=== PATIENT | female | born 1995 | race Caucasian/White ===

== ENCOUNTER 2023-01-28 05:47 | Emergency (ER) | payer MEDICAID ==
[~2023-01-28] VITALS: Ht 165.1 cm; Wt 50.0 kg
[2023-01-28 07:44] LABS: BASOPHILS % (AUTO) 0.4 % (0-1); EOSINOPHILS % (AUTO) 0.2 % (0-6); HEMATOCRIT 37.7 % (35.0-45.0); HEMOGLOBIN 12.8 g/dl (12.0-16.0); LYMPHOCYTES # (AUTO) 1.6 X10'3 (1.1-4.8); LYMPHOCYTES % (AUTO) 18.3 % (21-51); MEAN CORPUSCULAR HEMOGLOBIN 30.1 PG (27.0-31.0); MEAN CORPUSCULAR HGB CONC 34.1 g/dL (33.0-36.5); MEAN CORPUSCULAR VOLUME 88.3 FL (78-98); MEAN PLATELET VOLUME 7.7 FL (7.4-10.4); MONOCYTES # (AUTO) 0.6 X10'3 (0-0.9); MONOCYTES % (AUTO) 7.4 % (2-12); NEUTROPHILS # (AUTO) 6.5 X10'3 (1.8-7.7); NEUTROPHILS % (AUTO) 73.7 % (42-75); PLATELET COUNT 309 X10'3 (140-440); RED BLOOD COUNT 4.27 X10'6 (4.20-5.60); RED CELL DISTRIBUTION WIDTH 13.6 % (11.5-14.5); WHITE BLOOD COUNT 8.8 X10'3 (4.5-11.0)
[2023-01-28 08:11] LABS: ALANINE AMINOTRANSFERASE 28 U/L (12-78); ALBUMIN 4.4 G/DL (3.4-5.0); ALBUMIN/GLOBULIN RATIO 1.2 (1.1-1.5); ALKALINE PHOSPHATASE 54 IU/L (46-116); ANION GAP 20 (8-16); ASPARTATE AMINO TRANSFERASE 25 U/L (10-37); BILIRUBIN,TOTAL 2.6 MG/DL (0.1-1.0); BLOOD UREA NITROGEN 20 MG/DL (7-18); BUN/CREATININE RATIO 28.2 (10.0-20.0); CALCIUM 9.4 MG/DL (8.5-10.1); CHLORIDE 96 MMOL/L (99-107); CREATININE 0.71 MG/DL (0.40-0.90); GLUCOSE 75 MG/DL (70-104); POTASSIUM 3.3 MMOL/L (3.5-5.1); SODIUM 133 MMOL/L (135-145); TOTAL CARBON DIOXIDE 16.8 MMOL/L (24-32); TOTAL PROTEIN 8.1 G/DL (6.4-8.2); eCRCL 93 ML/MIN; eGFR > 90 ML/MIN
[2023-01-28 08:12] LABS: ETHANOL < 10 MG/DL (<10)
[2023-01-28 08:25] LABS: ACETAMINOPHEN < 2.0 UG/ML (10-30)
[2023-01-28 09:19] LABS: CREATINE KINASE 249 U/L (26-192)
--- NOTE | 2023-01-28 11:30 | NUR ---
pt exited room at 1115 to use bathroom pt has not come back to room all bathrooms in unit check pt is not visable on unit pt found walking back into unit from outside.
[2023-01-28 12:25] LABS: URINE HCG NEGATIVE (NEG)
--- NOTE | 2023-01-28 12:30 | NUR ---
urine collected sent to lab
[2023-01-28 12:33] LABS: URINE AMPHETAMINE SCREEN NEGATIVE (Neg); URINE BARBITUATE SCREEN NEGATIVE (Neg); URINE BENZODIAZEPINES SCREEN NEGATIVE (Neg); URINE CANNABINOID SCREEN POSITIVE (Neg); URINE COCAINE SCREEN POSITIVE (Neg); URINE METHADONE SCREEN NEGATIVE (Neg); URINE OPIATE SCREEN NEGATIVE (Neg); URINE PHENCYCLIDINE SCREEN NEGATIVE (Neg)
--- NOTE | 2023-01-28 13:06 | NUR ---
PACKET FAXED TO [facility]
--- NOTE | 2023-01-28 14:20 | NUR ---
Met with patient in regards to subtance use and to see if patient was interested in resources for treatment options. Patient last used cocaine this morning. Patient is requesting Suboxone. Patient is anxious. MD is going to give patient Ativan and will check patient again in the morning to see if patient is able to start Suboxone.
[2023-01-28] MEDS ORDERED: LORazepam 2 mg/ml vial IM ONE (15:05)
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
[2023-01-28 15:17] LABS: ETHANOL < 10 MG/DL (<10); THYROID STIMULATING HORMONE 0.29 ulU/ml (0.34-4.50)
--- NOTE | 2023-01-28 15:25 | NUR ---
Maurilio MARRUFO, evaluating patient. Continue to monitor.
--- NOTE | 2023-01-28 15:30 | NUR ---
Patient brought over from the Main ED. Patient appears very anxious. RN spoke to to get something for anxiety for patient. RN gave patient 1 mg Ativan I.M. Continue to monitor.
--- NOTE | 2023-01-28 15:47 | NUR ---
Samreen [phone]
--- NOTE | 2023-01-28 16:00 | NUR ---
NO BOYFRIEND CONTACT
--- NOTE | 2023-01-28 16:51 | NUR ---
Patient is sleeping comfortably. No distress observed. Continue to monitor.
[2023-01-28 18:00] VITALS: BP 122/82; PULSE 76; RESP 18; TEMP 97.9; O2SAT 99
[2023-01-28] MEDS ORDERED: LORazepam 1 MG tablet PO ONE (18:10)
[2023-01-28] MEDS ORDERED: ibuprofen tablet 400 MG TABLET PO ONE (18:10)
--- NOTE | 2023-01-28 18:15 | NUR ---
Patient awoke and moaning and appears anxious. RN spoke to patient and patient having Chest pain. RN ordered EKG and was shown to Dr. Mcdonald. then ordered a posterior EKG. Continue to monitor.
--- NOTE | 2023-01-28 19:05 | NUR ---
RN spoke with the doctor and asked him to come take a look at the patient. Patient's parents arrived to take her back to [place]. RN does not feel comfortable sending patient out with Chest Pain/Cocaine use. Patient states she believes she is going into withdrawal because she does cocaine everyday. Patient denies ever having CP with withdrawal. Continue to monitor.
[2023-01-28] MEDS ORDERED: ondansetron 4mg rapidly disintigrating tab PO ONE (19:10)
[2023-01-28] MEDS ORDERED: aspirin 81mg tab.chew PO ONE (19:20)
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
--- NOTE | 2023-01-28 21:03 | NUR ---
Patient continues to sleep comfortably. No distress observed. Continue to monitor.
== END 2023-01-28 23:09 | disposition home or self-care (01) ==
LOC: ER 05:48 → EEVIPCON 05:48 → ER 23:09
DX: F32.A Depression, unspecified (principal); Z20.822 Contact with and (suspected) exposure to COVID-19; R45.851 Suicidal ideations; F10.19 Alcohol abuse with unspecified alcohol-induced disorder; Y90.0 Blood alcohol level of less than 20 mg/100 ml
CPT/HCPCS: 36415; 71045; 80053; 80305; 80320; 80329; 81025; 82550; 83605; 84443; 84484; 85025; 87811; 93005; 96372; 99285; J2060